=== PATIENT | male | born 2000 | race Caucasian/White ===

== ENCOUNTER 2019-03-30 18:49 | Emergency (ER) | payer BC ==
[2019-03-30] MEDS ORDERED: Sodium Chloride 0.9% 1,000 ML IV ONE (19:12)
[2019-03-30] MEDS ORDERED: Pantoprazole 40 MG Vial IVPUSH ONE (19:12)
[2019-03-30] MEDS ORDERED: Aspirin 81 MG Tab.Chew PO ONE (19:12)
[2019-03-30] MEDS ORDERED: Sodium Chloride 0.9% 10 ML Syringe FLUSH PRN (19:12)
[2019-03-30] MEDS ORDERED: Sodium Chloride 0.9% 2.5 ML Syringe FLUSH PRN (19:12)
[2019-03-30] MEDS ORDERED: Ketorolac 30 MG/ML SDV IVPUSH ONE (19:14)
--- NOTE | 2019-03-30 19:20 | EDM.PDOC ---
ED HPI GENERAL MEDICAL PROBLEM - General Chief Complaint: Chest Pain Stated Complaint: CHEST Time Seen by Provider: 03/30/19 19:03 - History of Present Illness INITIAL COMMENTS - FREE TEXT/NARRATIVE: HISTORY AND PHYSICAL: History of present illness: The patient is a 17-year-old man with no significant cardiac pulmonary or GI history who presents with complaints of discomfort initially at his left upper chest one location and now at the left sternal border that has been ongoing for the last 1 week. The patient says that this started about one week ago after he went out last Monday night and drank a large amount of beer. He said that on Monday morning he felt a doubt and had some discomfort but no abdominal pain vomiting or diarrhea and thought he just had a hangover. The discomfort has persisted and was initially in the left upper chest wall and now it's more at the left sternal border. He has no shortness of breath cough or upper respiratory symptoms and he is eating and drinking normally. He has no abdominal pain vomiting or diarrhea. He has not had any alcohol since that time. The patient has no significant social history except occasional alcohol use and denies drug use. He has no significant family history for cardiac disease. He admits that he is here working and is from [place] and he does not eat a very healthy diet and does drink a lot of caffeinated products. He tells me that mid January he had a different type of chest pain and was seen in an emergency department there and had a full workup including labs chest x-ray and EKG and was told that he had pleurisy. They did not suggest any more outpatient follow-up. Here the patient says he has tried some [id number] medications sporadically but has not taken anything in the last few days and this typically nothing this evening. He says he occasionally gets heartburn but that is not a consistent problem and he has no food intolerance. He has not had black or bloody stools and he currently does not feel nauseated. He's had no recent trauma. He does tell me that when he moves his arms and does certain movements he notices it more and he says that during the day when he is at work doing his job he does not even notice the discomfort and is more when he is home trying to rest. He has no leg pain or swelling. He says the pain is not triggered by deep breathing. Review of systems: As per history of present illness and below otherwise all systems reviewed and negative. Past medical history: As per history of present illness and as reviewed below otherwise noncontributory. Surgical history: As per history of present illness and as reviewed below otherwise noncontributory. Social history: No reported history of drug or alcohol abuse. Family history: As per history of present illness and as reviewed below otherwise noncontributory. Physical exam: General: Well-developed well-nourished man who is nontoxic and vital signs were noted by me. HEENT: Atraumatic, normocephalic, pupils reactive, negative for conjunctival pallor or scleral icterus, mucous membranes moist, throat clear, neck supple, nontender, trachea midline. Lungs: Clear to auscultation, breath sounds equal bilaterally, chest with some minimal tenderness at palpation of the left upper chest wall and the left sternal border without defects deformities or crepitus. There is no wheezing stridor or work of breathing. Heart: S1S2, regular rhythm and slightly tachycardic rate of my evaluation but no overt murmurs. There is a slight systolic click appreciated which is very soft. Abdomen: Soft, nondistended, nontender. More specifically no epigastric right or left upper quadrant tenderness on deep palpation and no rebound or guarding. Bowel sounds are mildly hypoactive Negative for masses or hepatosplenomegaly. Negative for costovertebral tenderness. Pelvis: Stable nontender. Genitourinary: Deferred. Rectal: Deferred. Extremities: Atraumatic, negative for cords or calf pain. Neurovascular unremarkable. No pedal edema or leg asymmetry Neuro: Awake, alert, oriented. Cranial nerves II through XII unremarkable. Cerebellum unremarkable. Motor and sensory unremarkable throughout. Exam nonfocal. Diagnostics: EKG chest x-ray CBC CMP d-dimer amylase lipase troponin TSH UA with reflex Therapeutics: IV O2 monitor IV fluids Protonix aspirin Toradol Heart rate has normalized with IV fluids and blood pressure is still mildly elevated which I will discuss with the patient I discussed all testing results with the patient and his cousin at bedside. We discussed dietary changes and reduction of caffeine use follow-up in our clinic or with his provider at home in [place] and reduction of sodium intake. I discussed with him starting a symptom journal to see if that will help see any patterns with his discomfort. He says he does feel better ED and I'll plan on discharge home. I again rediscussed with him his borderline blood pressure and the need to explore dietary control with sodium reduction and then follow-up with clinic to see if he needs to pursue medication therapy. I advised him on reasons to Return to the ED Impression: Atypical chest pain stable, elevated blood pressure Definitive disposition and diagnosis as appropriate pending reevaluation and review of above. Chest Pain Score (Numeric/FACES): 5 - Related Data Allergies Allergy/AdvReac Type Severity Reaction Status Date / Time No Known Allergies Allergy Verified 03/30/19 19:00 Home Meds: Home Meds . [No Known Home Meds] 03/30/19 [History] Past Medical History - Past Health History Medical/Surgical History: Denies Medical/Surgical History Cardiovascular History: Reports: Hypertension Respiratory History: Reports: Other (See Below) Other Respiratory History: pluerisy Social & Family History - Family History Family Medical History: Noncontributory - Tobacco Use Smoking Status *Q: Light Tobacco Smoker Years of Tobacco use: 1 Packs/Tins Daily: 0 - Recreational Drug Use Recreational Drug Use: No ED ROS GENERAL - Review of Systems Review Of Systems: ROS reveals no pertinent complaints other than HPI. ED EXAM, GENERAL - Physical Exam Exam: See Below (See dictation) Course - Vital Signs Last Recorded V/S: Last Vital Signs Temp 36.8 C 03/30/19 18:55 Pulse 78 03/30/19 20:22 Resp 20 03/30/19 20:22 BP 153/84 H 03/30/19 20:22 Pulse Ox 96 03/30/19 20:22 - Orders/Labs/Meds Orders: Active Orders 24 hr Category Date Time Status Cardiac Monitoring [RC] . DIRECTED Care 03/30/19 19:10 Active EKG Documentation Completion [RC] STAT Care 03/30/19 19:10 Active Oxygen Therapy, ED [RC] ASDIRECTED Care 03/30/19 19:10 Active Pulse Oximetry [RC] ASDIRECTED Care 03/30/19 19:10 Active Sodium Chloride 0.9% [Saline Flush] Med 03/30/19 19:12 Active 10 ml FLUSH ASDIRECTED PRN Sodium Chloride 0.9% [Saline Flush] Med 03/30/19 19:12 Active 2.5 ml FLUSH ASDIRECTED PRN Saline Lock Insert [OM.PC] Stat Oth 03/30/19 19:10 Ordered Medication Orders Sodium Chloride (Saline Flush) 10 ml FLUSH ASDIRECTED PRN PRN Reason: Keep Vein Open Sodium Chloride (Saline Flush) 2.5 ml FLUSH ASDIRECTED PRN PRN Reason: Keep Vein Open Labs: Laboratory Tests 03/30/19 03/30/19 03/30/19 Range/Units 19:40 19:40 19:40 WBC 4.91 (4.0-11.0) K/uL RBC 5.43 (4.50-5.90) M/uL Hgb 16.2 (13.0-17.0) g/dL Hct 45.9 (38.0-50.0) % MCV 84.5 (80.0-98.0) fL MCH 29.8 (27.0-32.0) pg MCHC 35.3 (31.0-37.0) g/dL RDW Std Deviation 36.5 (28.0-62.0) fl RDW [place]eff of [place] 12 (11.0-15.0) % Plt Count 280 (150-400) K/uL MPV 9.90 (7.40-12.00) fL Neut % (Auto) 53.1 (48.0-80.0) % Lymph % (Auto) 36.9 (16.0-40.0) % [place] % (Auto) 9.2 (0.0-15.0) % Eos % (Auto) 0.4 (0.0-7.0) % Baso % (Auto) 0.4 (0.0-1.5) % Neut # (Auto) 2.6 (1.4-5.7) K/uL Lymph # (Auto) 1.8 (0.6-2.4) K/uL [place] # (Auto) 0.5 (0.0-0.8) K/uL Eos # (Auto) 0.0 (0.0-0.7) K/uL Baso # (Auto) 0.0 (0.0-0.1) K/uL Nucleated RBC % 0.0 /100WBC Nucleated RBCs # 0 K/uL D-Dimer, Quantitative < 0.19 (0.0-0.50) mg/L FEU Sodium 139 (136-148) mmol/L Potassium 3.5 (3.5-5.1) mmol/L Chloride 103 (98-107) mmol/L Carbon Dioxide 27.1 (21.0-32.0) mmol/L BUN 11 (7.0-18.0) mg/dL Creatinine 1.1 (0.8-1.3) mg/dL Est Cr Clr Drug Dosing 125.58 mL/min Estimated GFR (MDRD) > 60.0 ml/min Glucose 94 (74-106) mg/dL Calcium 9.3 (8.5-10.1) mg/dL Total Bilirubin 1.1 H (0.2-1.0) mg/dL AST 21 (15-37) IU/L ALT 51 (14-63) IU/L Alkaline Phosphatase 85 (46-116) U/L Troponin I < 0.050 (0.000-0.056) ng/mL Total Protein 7.8 (6.4-8.2) g/dL Albumin 4.3 (3.4-5.0) g/dL Globulin 3.5 (2.6-4.0) g/dL Albumin/Globulin Ratio 1.2 (0.9-1.6) Amylase 53 (25-115) U/L Lipase 112 (73-393) U/L TSH 3rd Generation 1.86 (0.36-3.74) uIU/mL Urine Color Urine Appearance Urine pH (5.0-8.0) Ur Specific [place] (1.001-1.035) Urine Protein (NEGATIVE) mg/dL Urine Glucose (UA) (NEGATIVE) mg/dL Urine Ketones (NEGATIVE) mg/dL Urine Occult Blood (NEGATIVE) Urine Nitrite (NEGATIVE) Urine Bilirubin (NEGATIVE) Urine Urobilinogen (<2.0) EU/dL Ur Leukocyte Esterase (NEGATIVE) 03/30/19 Range/Units 20:00 WBC (4.0-11.0) K/uL RBC (4.50-5.90) M/uL Hgb (13.0-17.0) g/dL Hct (38.0-50.0) % MCV (80.0-98.0) fL MCH (27.0-32.0) pg MCHC (31.0-37.0) g/dL RDW Std Deviation (28.0-62.0) fl RDW [place]eff [place] (11.0-15.0) % Plt Count (150-400) K/uL MPV (7.40-12.00) fL Neut % (Auto) (48.0-80.0) % Lymph % (Auto) (16.0-40.0) % [place] % (Auto) (0.0-15.0) % Eos % (Auto) (0.0-7.0) % Baso % (Auto) (0.0-1.5) % Neut # (Auto) (1.4-5.7) K/uL Lymph # (Auto) (0.6-2.4) K/uL [place] # (Auto) (0.0-0.8) K/uL Eos # (Auto) (0.0-0.7) K/uL Baso # (Auto) (0.0-0.1) K/uL Nucleated RBC % /100WBC Nucleated RBCs # K/uL D-Dimer, Quantitative (0.0-0.50) mg/L FEU Sodium (136-148) mmol/L Potassium (3.5-5.1) mmol/L Chloride (98-107) mmol/L Carbon Dioxide (21.0-32.0) mmol/L BUN (7.0-18.0) mg/dL Creatinine (0.8-1.3) mg/dL Est Cr Clr Drug Dosing mL/min Estimated GFR (MDRD) ml/min Glucose (74-106) mg/dL Calcium (8.5-10.1) mg/dL Total Bilirubin (0.2-1.0) mg/dL AST (15-37) IU/L ALT (14-63) IU/L Alkaline Phosphatase (46-116) U/L Troponin I (0.000-0.056) ng/mL Total Protein (6.4-8.2) g/dL Albumin (3.4-5.0) g/dL Globulin (2.6-4.0) g/dL Albumin/Globulin Ratio (0.9-1.6) Amylase (25-115) U/L Lipase (73-393) U/L TSH 3rd Generation (0.36-3.74) uIU/mL Urine Color YELLOW Urine Appearance CLEAR Urine pH 6.5 (5.0-8.0) Ur Specific [place] <= 1.005 (1.001-1.035) Urine Protein NEGATIVE (NEGATIVE) mg/dL Urine Glucose (UA) NEGATIVE (NEGATIVE) mg/dL Urine Ketones NEGATIVE (NEGATIVE) mg/dL Urine Occult Blood NEGATIVE (NEGATIVE) Urine Nitrite NEGATIVE (NEGATIVE) Urine Bilirubin NEGATIVE (NEGATIVE) Urine Urobilinogen 0.2 (<2.0) EU/dL Ur Leukocyte Esterase NEGATIVE (NEGATIVE) Meds: Medications Generic Name Dose Route Start Last Admin Trade Name Freq PRN Reason Stop Dose Admin Sodium Chloride 10 ml 03/30/19 19:12 Saline Flush FLUSH ASDIRECTED PRN Keep Vein Open Sodium Chloride 2.5 ml 03/30/19 19:12 Saline Flush FLUSH ASDIRECTED PRN Keep Vein Open Discontinued Medications Generic Name Dose Route Start Last Admin Trade Name Freq PRN Reason Stop Dose Admin Aspirin 324 mg 03/30/19 19:12 03/30/19 19:34 Aspirin PO 03/30/19 19:13 324 mg ONETIME ONE Administration Sodium Chloride 1,000 mls @ 999 mls/hr 03/30/19 19:12 03/30/19 19:35 Normal Saline IV 03/30/19 20:12 999 mls/hr STAT ONE Administration Sodium Chloride Confirm 03/30/19 19:32 03/30/19 19:35 Normal Saline Administered 03/30/19 19:33 20 mls/hr Dose Administration 20 mls @ as directed .ROUTE .STK-MED ONE Ketorolac Tromethamine 30 mg 03/30/19 19:14 03/30/19 19:36 Toradol IVPUSH 03/30/19 19:15 30 mg ONETIME ONE Administration Pantoprazole Sodium 80 mg 03/30/19 19:12 03/30/19 19:36 Protonix Iv IVPUSH 03/30/19 19:13 80 mg .BOLUS ONE Administration Departure - Departure Time of Disposition: 20:50 Disposition: Home, Self-Care 01 Condition: Good Clinical Impression: Atypical chest pain, Elevated blood pressure reading - Discharge Information Referrals: PCP,None [Primary Care Provider] - Forms: ED Department Discharge Additional Instructions: The following information is given to patients seen in the emergency department who are being discharged to home. This information is to outline your options for follow-up care. We provide all patients seen in our emergency department with a follow-up referral. The need for follow-up, as well as the timing and circumstances, are variable depending upon the specifics of your emergency department visit. If you don't have a primary care physician on staff, we will provide you with a referral. We always advise you to contact your personal physician following an emergency department visit to inform them of the circumstance of the visit and for follow-up with them and/or the need for any referrals to a consulting specialist. The emergency department will also refer you to a specialist when appropriate. This referral assures that you have the opportunity for followup care with a specialist. All of these measure are taken in an effort to provide you with optimal care, which includes your followup. Under all circumstances we always encourage you to contact your private physician who remains a resource for coordinating your care. When calling for followup care, please make the office aware that this follow-up is from your recent emergency room visit. If for any reason you are refused follow-up, please contact the [facility] emergency department at and ask to speak to the emergency department charge nurse. [facility] Primary care- [place] [address] Please reduce sodium in her diet as well as reduce caffeine use. Start a symptom journal to record when you're having chest discomfort or any symptoms and bring that to your clinic appointment. Call the clinic on Monday morning telling them that you're here in the ED and need a follow-up appointment for your blood pressure and symptoms of chest pain. Return to ER as needed and as discussed - My Orders Last 24 Hours: My Active Orders 03/30/19 19:10 Cardiac Monitoring [RC] . DIRECTED EKG Documentation Completion [RC] STAT Oxygen Therapy, ED [RC] ASDIRECTED Pulse Oximetry [RC] ASDIRECTED Saline Lock Insert [OM.PC] Stat 03/30/19 19:12 Sodium Chloride 0.9% [Saline Flush] 10 ml FLUSH ASDIRECTED PRN Sodium Chloride 0.9% [Saline Flush] 2.5 ml FLUSH ASDIRECTED PRN - Assessment/Plan Last 24 Hours: My Active Orders 03/30/19 19:10 Cardiac Monitoring [RC] . DIRECTED EKG Documentation Completion [RC] STAT Oxygen Therapy, ED [RC] ASDIRECTED Pulse Oximetry [RC] ASDIRECTED Saline Lock Insert [OM.PC] Stat 03/30/19 19:12 Sodium Chloride 0.9% [Saline Flush] 10 ml FLUSH ASDIRECTED PRN Sodium Chloride 0.9% [Saline Flush] 2.5 ml FLUSH ASDIRECTED PRN
[2019-03-30] MEDS ORDERED: Sodium Chloride 0.9% 20 ML ONE (19:32)
--- NOTE | 2019-03-30 20:03 | CR ---
INDICATION: Pain. Shortness of breath. TECHNIQUE: AP chest. FINDINGS: Clear lungs. Normal heart size, pulmonary vascularity, and included skeletal thorax. IMPRESSION: Negative AP chest. Dictated by Venkata Murry MD @ Mar 30 2019 8:01PM Signed by Dr. Venkata Murry @ Mar 30 2019 8:01PM
[2019-03-30 20:16] LABS: BLOOD UREA NITROGEN,BUN 11 mg/dL (7.0-18.0); CARBON DIOXIDE,CO2 27.1 mmol/L (21.0-32.0); CHLORIDE,CL 103 mmol/L (98-107); GLUCOSE RANDOM 94 mg/dL (74-106); LIPASE 112 U/L (73-393); POTASSIUM,K 3.5 mmol/L (3.5-5.1); SODIUM,NA 139 mmol/L (136-148)
== END 2019-03-30 21:05 | disposition home or self-care (01) ==
LOC: MW.ED 18:49
DX: R07.89 Other chest pain (principal); I10 Essential (primary) hypertension; F17.200 Nicotine dependence, unspecified, uncomplicated
CPT/HCPCS: 36415; 71045; 80053; 81003; 82150; 83690; 84443; 84484; 85025; 85379; 96361; 96374; 96375; 99285; A9270; C9113; J1885; J7040; 93005